=== PATIENT | female | born 1965 | race Caucasian/White ===

== ENCOUNTER → 2017-04-14 | Emergency (ER) | payer MEDICAID ==
[~2017-04-14] VITALS: Ht 167.6 cm; Wt 102.1 kg
[~2017-04-14] MED LIST: GENTAMICIN OPTH OINT 0.3% 3.5 G TUBE ONE; GENTAMICIN OPTH OINT 0.3% 3.5 G TUBE OP ONE; LISI-656 PO; METO25TA6 PO; OMEP20TA20 PO; diphenhydrAMINE HCL 50 MG CAPSULE ONE; diphenhydrAMINE HCL 50 MG CAPSULE PO ONE
--- NOTE | 2017-04-14 23:34 | NUR ---
Patient discharged to home in stable condition. Written and verbal after care instructions given. Patient verbalizes understanding of instruction.
[2017-04-14 23:35] VITALS: BP 111/72
== END | disposition home or self-care (01) ==
LOC: ER 20:51
DX: T78.3XXA Angioneurotic edema, initial encounter (principal); H10.89 Other conjunctivitis; I10 Essential (primary) hypertension; K21.9 Gastro-esophageal reflux disease without esophagitis; F10.10 Alcohol abuse, uncomplicated; Z88.1 Allergy status to other antibiotic agents; Z90.49 Acquired absence of other specified parts of digestive tract; Z91.040 Latex allergy status; Z88.6 Allergy status to analgesic agent; Z88.5 Allergy status to narcotic agent; Z88.8 Allergy status to other drugs, medicaments and biological substances; Y92.89 Other specified places as the place of occurrence of the external cause
CPT/HCPCS: 99283; A4606; Q0163; Z7610